=== PATIENT | female | born 2000 | race Caucasian/White ===

== ENCOUNTER 2023-09-04 21:54 | Emergency (ER) | payer OTHER ==
[~2023-09-04] VITALS: Ht 160 cm; Wt 91.6 kg
[2023-09-04 22:07] VITALS: BP 132/88; PULSE 74; RESP 18; TEMP 98.6; O2SAT 100
[2023-09-05] MEDS: BACITRACIN OINT 500 UNITS/GM PKT TP ONE (00:11)
[2023-09-05 01:51] VITALS: BP 128/88; PULSE 74; RESP 18; TEMP 98.6; O2SAT 100
== END 2023-09-05 01:51 | disposition home or self-care (01) ==
LOC: MED 21:54
DX: S61.012A Laceration without foreign body of left thumb without damage to nail, initial encounter (principal); W26.8XXA Contact with other sharp object(s), not elsewhere classified, initial encounter; Y93.89 Activity, other specified; Y92.89 Other specified places as the place of occurrence of the external cause; Y99.0 Civilian activity done for income or pay
CPT/HCPCS: 12001; 90471; 90715; 99283